=== PATIENT | female | born 1990 | race Caucasian/White ===

== ENCOUNTER 2019-06-28 11:42 | Emergency (ER) | payer OTHER ==
[2019-06-28 11:54] VITALS: BP 121/75; PULSE 98; TEMP 98.4; BMI 31.6
[2019-06-28 13:50] LABS: BASO % 0.5 % (0-2.0); EOS % 0.4 % (0-4.5); HEMATOCRIT 37.4 % (32.4-45.2); HEMOGLOBIN 12.4 GM/dL (10.7-15.3); LYMPH % 16.4 % (8-40); MCHC 33.2 g/dl (32.0-36.0); MEAN CELL VOLUME 84.4 fl (80-96); MONO % 6.9 % (3.8-10.2); NEUT % 75.8 % (42.8-82.8); PLATELET COUNT 334 K/MM3 (134-434); RBC 4.43 M/mm3 (3.60-5.2); RDW 13.3 % (11.6-15.6)
--- NOTE | 2019-06-28 13:53 | PDOC ---
History of Present Illness - General Chief Complaint: Chest Pain Stated Complaint: CHEST PAIN Time Seen by Provider: 06/28/19 12:08 History Source: Patient Exam Limitations: No Limitations - History of Present Illness Initial Comments: 06/28/19 13:27 31-year-old female presents the emergency room with complaints of right-sided chest pain which she describes an aching sensation worsened with movement and deep breathing for the past 2 days. Patient states also yesterday had 2 episodes of dizziness with standing in the morning but denies any visual changes , headache, shortness of breath, diaphoresis or nausea with episode. Patient denies fever, chills or abdominal pain. Denies recent surgery, smoking history or exogenous estrogen usage Presenting Symptoms: Chest Pain, Short of Breath Timing/Duration: reports: intermittent Severity/Quality: reports: mild, aching (rt side) Chest Pain Radiation: reports: no radiation Activities at Onset: reports: none Prior Chest Pain/Cardiac Workup: reports: No prior chest pain Nitro Today/Relief: Yes: no nitro taken today Associated Symptoms: Yes: Chest Pain/pressure, Dizziness (2 when standing yesterday), Shortness of Breath Past History - Travel Traveled outside of the country in the last 30 days: No Close contact w/someone who was outside of country & ill: No - Past Medical History Allergies/Adverse Reactions: Allergies Allergy/AdvReac Type Severity Reaction Status Date / Time No Known Allergies Allergy Verified 01/22/16 09:58 Home Medications: Ambulatory Orders No Home Medications 0 dose .ROUTE UTDICT 12/09/13 Acetaminophen [Tylenol] 650 mg PO Q6H #30 tablet 01/22/16 COPD: No Thyroid Disease: No - Surgical History Appendectomy: Yes Cholecystectomy: Yes - Reproductive History (#): 3 Para: 1 Cervical CA: No Dysfunctional Uterine Bleeding: No Ectopic : No Endometrial CA: No Polycystic Ovaries: No Tubal Ligation: No Spontaneous : 2 - Immunization History Immunization Up to Date: No - Suicide/Smoking/Psychosocial Hx Smoking History: Never smoked Have you smoked in the past 12 months: No Number of Cigarettes Smoked Daily: 0 Hx Alcohol Use: No Drug/Substance Use Hx: No Substance Use Type: None Patient Lives Alone: No Lives with/in: spouse/SO Review of Systems - Review of Systems Able to Perform ROS?: Yes Constitutional: No: Symptoms Reported HEENTM: No: Symptoms Reported Respiratory: Yes: Shortness of Breath (able to take but with discomfort deep breaths secondary to right-sided chest aching) Cardiac (ROS): No: Symptoms Reported ABD/GI: No: Symptoms Reported : No: Symptoms Reported Musculoskeletal: No: Symptoms Reported Integumentary: No: Symptoms Reported Endocrine: No: Symptoms Reported Hematologic/Lymphatic: No: Symptoms Reported *Physical Exam - Vital Signs Last Vital Signs Temp Pulse Resp BP Pulse Ox 98.4 F 98 H 18 121/75 99 06/28/19 11:51 06/28/19 11:51 06/28/19 11:51 06/28/19 11:51 06/28/19 11:51 - Physical Exam General Appearance: Yes: Nourished, Appropriately Dressed. No: Apparent Distress HEENT: positive: EOMI, JAVIER, TMs Normal, Pharynx Normal. negative: Pale Conjunctivae Neck: positive: Supple Respiratory/Chest: positive: Chest Tender (rt upper chest wall), Lungs Clear, Normal Breath Sounds. negative: Respiratory Distress, Accessory Muscle Use Cardiovascular: positive: Regular Rhythm, Regular Rate. negative: Murmur Gastrointestinal/Abdominal: positive: Soft. negative: Tenderness Extremity: positive: Normal Capillary Refill. negative: Pedal Edema Integumentary: positive: Normal Color, Warm, Moist Neurologic: positive: Motor Strength 5/5 (ambulatory) ED Treatment Course - LABORATORY CBC & Chemistry Diagram: 06/28/19 13:40 06/28/19 12:50 - ADDITIONAL ORDERS Additional order review: Laboratory Results 06/28/19 06/28/19 06/28/19 13:40 13:40 13:40 D-Dimer 785 H Sodium Potassium Chloride Carbon Dioxide Anion Gap BUN Creatinine Est GFR (CKD-EPI)AfAm Est GFR (CKD-EPI)NonAf Random Glucose Calcium Total Bilirubin AST ALT Alkaline Phosphatase Creatine Kinase Troponin I Total Protein Albumin Urine Color Yellow Urine Appearance Clear Urine pH 5.5 Ur Specific Dora 1.010 Urine Protein Negative Urine Glucose (UA) Negative Urine Ketones Negative Urine Blood 1+ H Urine Nitrite Negative Urine Bilirubin Negative Urine Urobilinogen 0.2 Ur Leukocyte Esterase 2+ H Urine WBC (Auto) 16 Urine RBC (Auto) 0 Urine Casts (Auto) 0 U Epithel Cells (Auto) 4.8 Urine Bacteria (Auto) 62.2 Urine HCG, Qual Negative 06/28/19 06/28/19 12:50 12:50 D-Dimer Sodium 140 Potassium 4.0 Chloride 105 Carbon Dioxide 28 Anion Gap 7 L BUN 12.0 Creatinine 0.8 Est GFR (CKD-EPI)AfAm 114.66 Est GFR (CKD-EPI)NonAf 98.93 Random Glucose 76 Calcium 9.3 Total Bilirubin 0.4 AST 13 L ALT 18 Alkaline Phosphatase 76 Creatine Kinase 133 Troponin I < 0.02 Total Protein 8.8 H Albumin 4.1 Urine Color Urine Appearance Urine pH Ur Specific Dora Urine Protein Urine Glucose (UA) Urine Ketones Urine Blood Urine Nitrite Urine Bilirubin Urine Urobilinogen Ur Leukocyte Esterase Urine WBC (Auto) Urine RBC (Auto) Urine Casts (Auto) U Epithel Cells (Auto) Urine Bacteria (Auto) Urine HCG, Qual 06/28/19 13:40 RBC 4.43 MCV 84.4 MCHC 33.2 RDW 13.3 MPV 9.0 D Neutrophils % 75.8 Lymphocytes % 16.4 D Monocytes % 6.9 Eosinophils % 0.4 Basophils % 0.5 - RADIOLOGY Radiology Studies Ordered: Category Date Time Status CHEST CTA [CT] Stat CT Scan 06/28/19 14:29 Completed Medical Decision Making - Medical Decision Making 06/28/19 13:31 Chief complaint: Right-sided chest achiness worsened with movement and deep breathing. Patient states to episode of dizziness yesterday patient denies history of anemia recent injury recent travel or history of clotting disorders Exam. Patient's heart rate 98 and had mild reproducible right upper chest pain Plan: Labs, urine, IV, d-dimer and if positive will order a chest CTA. 06/28/19 14:34 Laboratory Tests 06/28/19 06/28/19 06/28/19 13:40 13:40 13:40 WBC 11.0 H Hgb 12.4 Hct 37.4 Absolute Neuts (auto) 8.3 H D-Dimer 785 H Urine Blood Ur Leukocyte Esterase Urine WBC (Auto) Urine RBC (Auto) Urine HCG, Qual Negative 06/28/19 13:40 WBC Hgb Hct Absolute Neuts (auto) D-Dimer Urine Blood 1+ H Ur Leukocyte Esterase 2+ H Urine WBC (Auto) 16 Urine RBC (Auto) 0 Urine HCG, Qual chest cta ordered 06/28/19 17:[address] evidence of pulmonary embolism. This subtle minimal to mild left basilar groundglass interstitial opacity which is seen and may be chronic versus acute nature. Correlate clinically and with a follow-up CT. Patient states does have a PCP at [facility] and will schedule an appointment for follow-up CT . Urine culture was sent. Patient will be notified if urine culture is positive for UTI since patient is currently asymptomatic now of urinary complaints or lower abdominal pain *DC/Admit/Observation/Transfer Diagnosis at time of Disposition: Right-sided chest pain - Discharge Dispostion Disposition: HOME - Referrals Referrals: Anjali Haley [Primary Care Provider] - - Patient Instructions Printed Discharge Instructions: DI for Atypical Chest Pain Additional Instructions: Take 975 mg of Tylenol every 8 hours for chest discomfort. Drink plenty of fluids. If urine culture positive for an infection we will contact you for follow-up and order antibiotics if needed. You also need to follow-up with your primary care physician for follow-up and repeat chest CT - Post Discharge Activity
[2019-06-28 14:01] LABS: EPI CELLS 4.8 /HPF (0-5/HPF); HYALINE CASTS 0 /lpf (0-8); PH,URINE 5.5 (5.0-8.0); URINE APPEARANCE CLEAR; URINE BACTERIA 62.2 /hpf (NEGATIVE); URINE BILIRUBIN NEGATIVE (NEGATIVE); URINE COLOR YELLOW; URINE GLUCOSE (UA) NEGATIVE (NEGATIVE); URINE KETONE NEGATIVE (NEGATIVE); URINE LEUK ESTERASE 2+ (NEGATIVE); URINE NITRITE NEGATIVE (NEGATIVE); URINE PROTEIN NEGATIVE (NEGATIVE); URINE RBC 0 /hpf (0-4); URINE UROBILINOGEN 0.2 mg/dL (0.2-1.0); URINE WBC 16 /hpf (0-5)
[2019-06-28 14:41] LABS: ALBUMIN 4.1 g/dl (3.4-5.0); BILIRUBIN,TOTAL 0.4 mg/dL (0.2-1); CALCIUM 9.3 mg/dL (8.5-10.1); CREATININE 0.8 mg/dL (0.55-1.3); TOT PROT 8.8 g/dl (6.4-8.2)
--- NOTE | 2019-06-29 11:27 | EKG ---
Test Reason : Blood Pressure : / mmHG Vent. Rate : 085 BPM Atrial Rate : 085 BPM P-R Int : 118 ms QRS Dur : 086 ms QT Int : 356 ms P-R-T Axes : 029 013 032 degrees QTc Int : 423 ms NORMAL SINUS RHYTHM NORMAL ECG WHEN COMPARED WITH ECG OF 30-APR-2010 15:45, NO SIGNIFICANT CHANGE WAS FOUND Confirmed by Jacob Orourke MD ([id number]) on 06/29/2019 11:26:59 AM Referred By: Confirmed By:Jacob Orourke MD
== END 2019-06-28 17:34 | disposition home or self-care (01) ==
LOC: JER 11:42
DX: R07.9 Chest pain, unspecified (principal)
CPT/HCPCS: 36415; 71275-TC; 80053; 81003; 82550; 84484; 84703; 85025; 85379; 87086; 93005; 93010; 99283-25

== ENCOUNTER 2022-05-11 07:19 | Emergency (ER) | payer OTHER ==
[2022-05-11 07:41] VITALS: BP 108/72; PULSE 81; TEMP 98.2; BMI 39.9
== END 2022-05-11 08:58 | disposition home or self-care (01) ==
LOC: JER 07:19 → JERFT 07:19
DX: S00.03XA Contusion of scalp, initial encounter (principal); S06.0X0A Concussion without loss of consciousness, initial encounter; H53.8 Other visual disturbances; W22.09XA Striking against other stationary object, initial encounter
CPT/HCPCS: 99281-25